=== PATIENT | female | born 1995 | race Two or more races ===

== ENCOUNTER 2023-08-27 17:05 | Emergency (ER) | payer BC ==
[~2023-08-27] VITALS: Ht 160 cm; Wt 61.2 kg
[2023-08-27] MEDS ORDERED: CLARITIN5 MG (17:21)
[2023-08-27 18:09] LABS: HEMATOCRIT 38.8 % (36.0-45.00); HEMOGLOBIN 13.2 g/dL (12.0-15.00); MEAN CELL VOLUME 89.8 fL (80.00-100.00); MEAN CORPUSCULAR HEMOGLOBIN 30.6 pg (27.00-32.0); MEAN CORPUSCULAR HGB CONC 34.1 g/dl (32.0-36.0); PLATELET COUNT 271 K/uL (150-450); RED BLOOD COUNT 4.33 M/uL (4.00-6.00); RED CELL DISTRIBUTION WIDTH 13.6 % (11.5-14.5)
[2023-08-27 19:03] LABS: URINE COLOR BROWN
[2023-08-27 19:07] LABS: URINE APPEARANCE BLOODY; URINE BILIRRUBIN MODERATE (NEGATIVE); URINE GLUCOSE 100 MG/DL (NEGATIVE)
[2023-08-27 19:08] LABS: PH,URINE 6.5; URINE BLOOD LARGE
[2023-08-27 19:09] LABS: URINE NITRATE POSITIVE
[2023-08-27 19:10] LABS: URINE LEUKOCYTE LARGE
[2023-08-27 19:14] LABS: URINE BACTERIA FEW; URINE EPITHELIAL CELLS 0-4 /HPF; URINE MUCUS SCANT; URINE PROTEIN >=300 (NEGATIVE); URINE RBC LOADED /HPF; URINE WBC 13-20 /hpf
== END 2023-08-27 21:05 | disposition home or self-care (01) ==
LOC: ER 17:05
PROVIDERS: Emergency Medicine
DX: N39.0 Urinary tract infection, site not specified (principal); Z91.048 Other nonmedicinal substance allergy status

== ENCOUNTER → 2024-07-18 | Emergency (ER) | payer BC ==
[~2024-07-18] VITALS: Ht 160 cm; Wt 56.7 kg
[~2024-07-18] MED LIST: 0.9 % SODIUM CHLORIDE 1,000 ML IV ONE; CEFADROXIL1 GM PO; CEFTRIAXONE SODIUM 1,000 MG VIAL IM ONE; CLARITIN5 MG; FLUOXETINE HCL40 MG PO; PEPCID AC20 MG PO; TETANUS & DIPHTHERIA TOX,ADULT 0.5 ML VIAL IM ONE
[2024-07-18 08:33] VITALS: BP 106/72; O2SAT 100
[2024-07-18 10:32] LABS: HEMATOCRIT 40.7 % (36.0-45.00); MEAN CELL VOLUME 88.9 fL (80.00-100.00); MEAN CORPUSCULAR HEMOGLOBIN 30.6 pg (27.00-32.0); MEAN CORPUSCULAR HGB CONC 34.4 g/dl (32.0-36.0); PLATELET COUNT 260 K/uL (150-450); RED BLOOD COUNT 4.58 M/uL (4.00-6.00); RED CELL DISTRIBUTION WIDTH 13.2 % (11.5-14.5)
== END | disposition home or self-care (01) ==
LOC: ER 07:55
PROVIDERS: General Practice
DX: L08.9 Local infection of the skin and subcutaneous tissue, unspecified (principal); Z88.8 Allergy status to other drugs, medicaments and biological substances